=== PATIENT | male | born 1960 | race Caucasian/White ===

== ENCOUNTER 2017-09-06 08:35 | Outpatient (CLI) | payer MEDICARE ==
[~2017-09-06 08:35] MED LIST: ATOR40TA3 PO; PREG150C PO
== END 2017-09-06 09:41 | disposition home or self-care (01) ==
LOC: WOUND CARE 08:35
PROVIDERS: ATTEND Surgery
DX: L97.511 Non-pressure chronic ulcer of other part of right foot limited to breakdown of skin (principal); I25.2 Old myocardial infarction; G82.20 Paraplegia, unspecified; Z72.89 Other problems related to lifestyle
CPT/HCPCS: 99211; A6021; A6196; A6223; 99215

== ENCOUNTER 2017-09-13 08:35 | Day surgery (SDC) | payer MEDICARE ==
[2017-09-13] MEDS ORDERED: LIDOcaine 2% 5ml jelly ONE (09:41)
== END 2017-09-13 10:27 | disposition home or self-care (01) ==
LOC: WOUND CARE 08:35
PROVIDERS: ATTEND Surgery
DX: L97.511 Non-pressure chronic ulcer of other part of right foot limited to breakdown of skin (principal); I25.2 Old myocardial infarction; G82.20 Paraplegia, unspecified; Z72.89 Other problems related to lifestyle
CPT/HCPCS: 97597; A6021; A6196; A6222

== ENCOUNTER 2017-09-20 08:20 | Day surgery (SDC) | payer MEDICARE | END 2017-09-20 10:13 | disposition home or self-care (01) | LOC: WOUND CARE 08:20 | PROVIDERS: ATTEND Surgery | DX: L97.511 Non-pressure chronic ulcer of other part of right foot limited to breakdown of skin (principal); T25.221D Burn of second degree of right foot, subsequent encounter; T31.0 Burns involving less than 10% of body surface; I25.2 Old myocardial infarction; G82.20 Paraplegia, unspecified; Z72.89 Other problems related to lifestyle | CPT/HCPCS: 97597; A6021; A6206 ==

== ENCOUNTER 2017-09-27 08:10 | Day surgery (SDC) | payer MEDICARE ==
[2017-09-27] MEDS ORDERED: LIDOcaine 2% 5ml jelly ONE (09:52)
== END 2017-09-27 10:24 | disposition home or self-care (01) ==
LOC: WOUND CARE 08:10
PROVIDERS: ATTEND Surgery
DX: T25.221D Burn of second degree of right foot, subsequent encounter (principal); L97.511 Non-pressure chronic ulcer of other part of right foot limited to breakdown of skin; T31.0 Burns involving less than 10% of body surface; I25.2 Old myocardial infarction; G82.20 Paraplegia, unspecified; F15.90 Other stimulant use, unspecified, uncomplicated; Z72.89 Other problems related to lifestyle
CPT/HCPCS: 97597; A6021; A6222

== ENCOUNTER 2017-10-04 08:00 | Day surgery (SDC) | payer MEDICARE ==
[2017-10-04] MEDS ORDERED: LIDOcaine 2% 5ml jelly ONE (09:36)
== END 2017-10-04 10:03 | disposition home or self-care (01) ==
LOC: WOUND CARE 08:00
PROVIDERS: ATTEND Surgery
DX: T25.221D Burn of second degree of right foot, subsequent encounter (principal); L97.511 Non-pressure chronic ulcer of other part of right foot limited to breakdown of skin; T31.0 Burns involving less than 10% of body surface; I25.2 Old myocardial infarction; G82.20 Paraplegia, unspecified; F15.90 Other stimulant use, unspecified, uncomplicated; Z72.89 Other problems related to lifestyle
CPT/HCPCS: 97597; A6021; A6206; A6446

== ENCOUNTER 2017-10-18 08:15 | Day surgery (SDC) | payer MEDICARE ==
[2017-10-18] MEDS: LIDOcaine 2% 5ml jelly ONE (09:39)
== END 2017-10-18 10:30 | disposition home or self-care (01) ==
LOC: WOUND CARE 08:15
PROVIDERS: ATTEND Surgery
DX: T25.221D Burn of second degree of right foot, subsequent encounter (principal); L97.511 Non-pressure chronic ulcer of other part of right foot limited to breakdown of skin; T31.0 Burns involving less than 10% of body surface; I25.2 Old myocardial infarction; G82.20 Paraplegia, unspecified; F15.90 Other stimulant use, unspecified, uncomplicated; Z72.89 Other problems related to lifestyle
CPT/HCPCS: 97597; A6206

== ENCOUNTER 2022-06-02 03:21 | Emergency (ER) | payer MEDICARE ==
[~2022-06-02] VITALS: Ht 177.8 cm; Wt 81.8 kg
[~2022-06-02 03:21] MED LIST changes: -ATOR40TA3 PO; +ATOR40TA7 PO
[2022-06-02 05:22] LABS: EOSINOPHILS # (AUTO) 1.5 X10'3 (0-0.9); MEAN PLATELET VOLUME 6.1 FL (7.4-10.4)
[2022-06-02 05:24] LABS: BASOPHILS # (AUTO) 0.2 X10'3 (0-0.2); BASOPHILS % (AUTO) 1.2 % (0-1); EOSINOPHILS % (AUTO) 9.8 % (0-6); HEMATOCRIT 32.9 % (42.0-52.0); HEMOGLOBIN 10.3 g/dl (14.0-17.9); LYMPHOCYTES % (AUTO) 13.1 % (21-51); MEAN CORPUSCULAR HEMOGLOBIN 21.9 PG (27.0-31.0); MEAN CORPUSCULAR HGB CONC 31.2 g/dL (33.0-36.5); MEAN CORPUSCULAR VOLUME 70.2 FL (78-98); MONOCYTES # (AUTO) 1.2 X10'3 (0-0.9); NEUTROPHILS # (AUTO) 10.4 X10'3 (1.8-7.7); NEUTROPHILS % (AUTO) 67.9 % (42-75); PLATELET COUNT 635 X10'3 (140-440); RED BLOOD COUNT 4.68 X10'6 (4.70-6.10); RED CELL DISTRIBUTION WIDTH 19.9 % (11.5-14.5); WHITE BLOOD COUNT 15.2 X10'3 (4.5-11.0)
[2022-06-02 05:34] LABS: ALANINE AMINOTRANSFERASE 26 U/L (12-78); ALBUMIN 2.2 G/DL (3.4-5.0); ALBUMIN/GLOBULIN RATIO 0.4 (1.1-1.5); ALKALINE PHOSPHATASE 107 IU/L (46-116); ANION GAP 9 (8-16); ASPARTATE AMINO TRANSFERASE 22 U/L (10-37); BILIRUBIN,TOTAL 0.1 MG/DL (0.1-1.0); BLOOD UREA NITROGEN 11 MG/DL (7-18); BUN/CREATININE RATIO 15.7 (5.4-32.0); CALCIUM 8.9 MG/DL (8.5-10.1); CHLORIDE 103 MMOL/L (99-107); GLUCOSE 95 MG/DL (70-104); SODIUM 139 MMOL/L (135-145); TOTAL CARBON DIOXIDE 26.8 MMOL/L (24-32); TOTAL PROTEIN 7.8 G/DL (6.4-8.2); eGFR > 90 ML/MIN
[2022-06-02 05:39] LABS: POTASSIUM 3.8 MMOL/L (3.5-5.1)
[2022-06-02 05:42] LABS: ANISOCYTOSIS 2+; HYPOCHROMASIA 1+; LARGE PLATELETS FEW; MICROCYTOSIS 1+; PLATELET ESTIMATE INCREASED
[2022-06-02] MEDS: ringers solution, lactated 1000ml IV soln IV ONE (05:45)
[2022-06-02] MEDS: LIDOcaine 2% 10ml TOPICAL JELLY (Urojet) TP ONE (05:55)
[2022-06-02] MEDS: CefTRIAXone 2gm/D5W 50ml BAG 50 ML IV ONE (06:21)
[2022-06-02 06:51] VITALS: BP 127/66
[2022-06-02 07:37] LABS: CLARITY,URINE CLEAR (Clear); COLOR,URINE YELLOW (Yellow); GLUCOSE, URINE NEGATIVE (Neg); KETONES,URINE NEGATIVE (Neg); LEUKOCYTE ESTERASE ,URINE TRACE (Neg); NITRITES, URINE NEGATIVE (Neg); OCCULT BLOOD,URINE NEGATIVE (Neg); PH,URINE 5.5 (4.8-8.0); PROTEIN,URINE NEGATIVE (Neg); UROBILINOGEN,URINE 0.2 E.U/dL (0.2-1.0)
[2022-06-02] MEDS: amox tr/potassium clavulanate 875/125mg TAB PO ONE (07:37)
[2022-06-02 07:53] LABS: UA COLLECTION TYPE FOLEY CATH
[2022-06-02 07:59] LABS: BACTERIA,URINE 1+ /HPF (Neg); RBC,URINE NONE SEEN /HPF (0-2)
[2022-06-02 08:00] LABS: MUCUS STRANDS FEW /LPF (Neg); SQUAMOUS EPITHELIAL CELL,UR FEW /LPF (FEW); TRANSITIONAL EPI CELLS,URINE FEW /HPF
[2022-06-02] MEDS ORDERED: AMOX-117 PO (08:07)
== END 2022-06-02 08:18 | disposition home or self-care (01) ==
LOC: ER 03:22
DX: T83.098A Other mechanical complication of other urinary catheter, initial encounter (principal); N39.0 Urinary tract infection, site not specified; I51.9 Heart disease, unspecified; Z79.899 Other long term (current) drug therapy
CPT/HCPCS: 80053; 81001; 85008; 85025; 87088; 96365; 99285; C1758; J0696; J7120

== ENCOUNTER 2022-06-02 09:43 | Emergency (ER) | payer MEDICARE ==
[~2022-06-02] VITALS: Ht 177.8 cm; Wt 81.8 kg
[~2022-06-02 09:43] MED LIST changes: +AMOX-117 PO
[2022-06-02 10:43] VITALS: BP 157/79
== END 2022-06-02 12:41 | disposition home or self-care (01) ==
LOC: ER 09:43
DX: R33.9 Retention of urine, unspecified (principal); I51.9 Heart disease, unspecified; Z79.899 Other long term (current) drug therapy
CPT/HCPCS: 51702; 99284; C1758; A4314

== ENCOUNTER 2022-06-08 10:46 | Emergency (ER) | payer MEDICARE ==
[~2022-06-08] VITALS: Ht 177.8 cm; Wt 81.8 kg
[2022-06-08 11:03] VITALS: BP 119/67
[2022-06-08 13:14] LABS: ALANINE AMINOTRANSFERASE 23 U/L (12-78); ALBUMIN 2.2 G/DL (3.4-5.0); ALBUMIN/GLOBULIN RATIO 0.4 (1.1-1.5); ALKALINE PHOSPHATASE 106 IU/L (46-116); ANION GAP 11 (8-16); ASPARTATE AMINO TRANSFERASE 16 U/L (10-37); BILIRUBIN,TOTAL 0.2 MG/DL (0.1-1.0); BLOOD UREA NITROGEN 10 MG/DL (7-18); BUN/CREATININE RATIO 13.2 (5.4-32.0); CHLORIDE 103 MMOL/L (99-107); CREATININE 0.76 MG/DL (0.60-1.10); GLUCOSE 83 MG/DL (70-104); POTASSIUM 3.7 MMOL/L (3.5-5.1); SODIUM 139 MMOL/L (135-145); TOTAL CARBON DIOXIDE 25.5 MMOL/L (24-32); TOTAL PROTEIN 7.6 G/DL (6.4-8.2); eGFR > 90 ML/MIN
[2022-06-08 13:19] LABS: CLARITY,URINE CLEAR (Clear); COLOR,URINE YELLOW (Yellow); GLUCOSE, URINE NEGATIVE (Neg); KETONES,URINE NEGATIVE (Neg); NITRITES, URINE NEGATIVE (Neg); OCCULT BLOOD,URINE NEGATIVE (Neg); PROTEIN,URINE NEGATIVE (Neg); UROBILINOGEN,URINE 0.2 E.U/dL (0.2-1.0)
[2022-06-08 13:31] LABS: BASOPHILS # (AUTO) 0.1 X10'3 (0-0.2); LYMPHOCYTES # (AUTO) 2.3 X10'3 (1.1-4.8); NEUTROPHILS # (AUTO) 11.2 X10'3 (1.8-7.7); WHITE BLOOD COUNT 16.8 X10'3 (4.5-11.0)
[2022-06-08 13:33] LABS: BASOPHILS % (AUTO) 0.7 % (0-1); EOSINOPHILS # (AUTO) 1.4 X10'3 (0-0.9); EOSINOPHILS % (AUTO) 8.5 % (0-6); HEMATOCRIT 33.3 % (42.0-52.0); HEMOGLOBIN 10.2 g/dl (14.0-17.9); LYMPHOCYTES % (AUTO) 13.5 % (21-51); MEAN CORPUSCULAR HEMOGLOBIN 21.6 PG (27.0-31.0); MEAN CORPUSCULAR HGB CONC 30.6 g/dL (33.0-36.5); MEAN CORPUSCULAR VOLUME 70.6 FL (78-98); MEAN PLATELET VOLUME 6.4 FL (7.4-10.4); MONOCYTES # (AUTO) 1.8 X10'3 (0-0.9); MONOCYTES % (AUTO) 10.6 % (2-12); NEUTROPHILS % (AUTO) 66.7 % (42-75); PLATELET COUNT 758 X10'3 (140-440); RED BLOOD COUNT 4.71 X10'6 (4.70-6.10); RED CELL DISTRIBUTION WIDTH 19.9 % (11.5-14.5)
[2022-06-08 13:35] LABS: LEUKOCYTE ESTERASE ,URINE NEGATIVE (Neg)
[2022-06-08 13:36] LABS: UA COLLECTION TYPE FOLEY CATH
[2022-06-08 13:56] LABS: ANISOCYTOSIS 2+; MICROCYTOSIS 1+; PLATELET ESTIMATE INCREASED
== END 2022-06-08 13:30 | disposition home or self-care (01) ==
LOC: ER 10:47
DX: R33.9 Retention of urine, unspecified (principal); G82.20 Paraplegia, unspecified
CPT/HCPCS: 36415; 51702; 80053; 81003; 85008; 85025; 99284; A4314; A4340